=== PATIENT | female | born 1960 | race Caucasian/White ===

== ENCOUNTER 2019-10-26 20:56 | Emergency (ER) | payer OTHER ==
[~2019-10-26] VITALS: Ht 160 cm; Wt 80.7 kg
[2019-10-26] MEDS ORDERED: COZAAR100 MG (21:45)
[2019-10-26] MEDS ORDERED: NEURONTIN800 MG (21:45)
[2019-10-26] MEDS ORDERED: LANTUS SOL100 UNIT/1 (21:45)
[2019-10-26] MEDS ORDERED: TOPROL XL100 M1 (21:45)
[2019-10-26] MEDS ORDERED: DICLOFENAC SODI75 MG PO (22:12)
== END 2019-10-26 22:58 | disposition home or self-care (01) ==
LOC: ER 20:56 → EDBD 22:20 → ER 22:58
DX: M54.2 Cervicalgia (principal); M62.838 Other muscle spasm

== ENCOUNTER 2019-10-27 11:34 | Emergency (ER) | payer OTHER ==
[~2019-10-27] VITALS: Ht 154.9 cm; Wt 68.9 kg
[~2019-10-27 11:34] MED LIST: COZAAR100 MG; DICLOFENAC SODI75 MG PO; LANTUS SOL100 UNIT/1; NEURONTIN800 MG; TOPROL XL100 M1
== END 2019-10-27 14:25 | disposition home or self-care (01) ==
LOC: ER 11:34 → EDBD 12:22 → ER 14:25
DX: M43.6 Torticollis (principal)

== ENCOUNTER → 2019-10-28 | Emergency (ER) | payer OTHER ==
[~2019-10-28] VITALS: Ht 154.9 cm; Wt 68.9 kg
== END | disposition left against medical advice (07) ==
LOC: ER 12:37 → EDBD 14:44
DX: S46.811A Strain of other muscles, fascia and tendons at shoulder and upper arm level, right arm, initial encounter (principal); S13.4XXA Sprain of ligaments of cervical spine, initial encounter; X50.9XXA Other and unspecified overexertion or strenuous movements or postures, initial encounter; Y93.89 Activity, other specified; Y92.238 Other place in hospital as the place of occurrence of the external cause; Y99.8 Other external cause status